=== PATIENT | male | born 1995 | race Caucasian/White ===

== ENCOUNTER 2023-10-09 17:23 | Emergency (ER) | payer OTHER ==
[2023-10-09] MEDS: Ibuprofen 600 MG Tab PO ONE (18:24)
[2023-10-09 18:28] LABS: BASOPHILS PERCENT AUTO 0.3 % (0.1-1.3); EOSINOPHILS PERCENT AUTO 0.1 % (0.0-5.4); HEMATOCRIT 34.3 % (38.4-49.7); HEMOGLOBIN 11.8 g/dL (12.9-16.9); IMMATURE GRAN ABSOLUTE AUTO 0.04 K/uL (0.00-0.23); IMMATURE GRAN PERCENT AUTO 0.5 % (0.0-0.7); LYMPHOCYTES ABSOLUTE AUTO 0.68 K/uL (0.8-3.3); LYMPHOCYTES PERCENT AUTO 9.1 % (11.4-47.7); MEAN CORPUSCULAR HEMOGLOBIN 28.6 pg (31.6-35.5); MEAN CORPUSCULAR HGB CONC 34.4 g/dL (31.6-35.5); MEAN CORPUSCULAR VOLUME 83.1 fL (81.4-99.0); MONOCYTES ABSOLUTE AUTO 0.29 K/uL (0.20-0.90); MONOCYTES PERCENT AUTO 3.9 % (3.3-12.6); NEUTROPHILS ABSOLUTE AUTO 6.44 K/uL (1.0-7.6); NEUTROPHILS PERCENT AUTO 86.1 % (40.0-78.1); PLATELET COUNT,PLT 106 K/uL (130-375); RED BLOOD CELL COUNT 4.13 M/uL (4.14-5.76); WHITE BLOOD CELL COUNT,WBC 7.5 K/uL (3.2-11.0)
[2023-10-09 18:29] LABS: BASOPHILS ABSOLUTE AUTO 0.02 K/uL (0.00-0.10); EOSINOPHILS ABSOLUTE AUTO 0.01 K/uL (0.00-0.40)
[2023-10-09 18:56] LABS: BLOOD UREA NITROGEN,BUN 9 mg/dL (7-18); CARBON DIOXIDE,CO2 25 mmol/L (21-32); CHLORIDE,CL 95 mmol/L (100-108); GLUCOSE RANDOM 116 mg/dL (74-106); POTASSIUM,K 3.3 mmol/L (3.6-5.2); SODIUM,NA 129 mmol/L (140-148)
[2023-10-09 18:57] LABS: A/G RATIO 0.4 (1.2-2.2); ALANINE AMINOTRANSFERASE,ALT 77 U/L (12-78); ALBUMIN 1.9 g/dL (3.4-5.0); ANION GAP 12.3 mmol/L (5.0-14.0); BILIRUBIN TOTAL 17.4 mg/dL (0.2-1.0); CALCIUM 8.3 mg/dL (8.5-10.1); EST CRCL DRUG DOSING (CG) 94.45 mL/min; ESTIMATED GFR 94 mL/min (>60)
[2023-10-09 19:06] LABS: CORONAVIRUS COVID-19 NAA NEGATIVE (NEGATIVE); INFLUENZA A NAA NEGATIVE (NEGATIVE); INFLUENZA B NAA NEGATIVE (NEGATIVE); RESPIRATORY SYNCYTIAL VIR NAA NEGATIVE (NEGATIVE)
[2023-10-09 19:15] LABS: CREATININE 1.1 mg/dL (0.8-1.3)
[2023-10-09 19:16] LABS: ALKALINE PHOSPHATASE 1584 U/L (46-116); ASPARTATE AMNIOTRANSFERASE,AST 111 U/L (15-37); PROTEIN TOTAL,TP 6.6 g/dL (6.4-8.2)
[2023-10-09 19:26] LABS: PROTHROMBIN TIME 47.5 sec (9.2-10.6)
[2023-10-09 19:30] LABS: INR 5.2
[2023-10-09] MEDS: Sodium Chloride 0.9% 1,000 ML IV SCH (19:49)
[2023-10-09] MEDS: Piperacillin/Tazobactam 4.5 GM in Sodium Chloride 0.9% 100 ML IV ONE (19:49)
[2023-10-09] MEDS: Ibuprofen 400 MG Tab PO ONE (20:56)
[2023-10-09] MEDS ORDERED: Ibuprofen 400 MG Tab ONE (20:58)
== END 2023-10-09 22:15 ==
LOC: JP.ED 17:23
DX: K83.09 Other cholangitis (principal); E86.0 Dehydration; Z88.5 Allergy status to narcotic agent; Z79.899 Other long term (current) drug therapy; Z90.49 Acquired absence of other specified parts of digestive tract
CPT/HCPCS: 0241U; 36415; 80053; 83605; 85025; 85610; 87040; 87077; 87186; 96361; 96365; 99285; A9270; J2543; J3490; J7030